=== PATIENT | female | born 1970 | race Caucasian/White ===

== ENCOUNTER 2022-02-08 05:14 | Emergency (ER) | payer SELFPAY ==
[~2022-02-08] VITALS: Ht 167.6 cm; Wt 108.9 kg
[2022-02-08 05:20] VITALS: BP 109/85
--- NOTE | 2022-02-08 05:29 | NUR ---
51 y/o bib daughter since yesterday . pt states she has asthma. she takes qvar but stated very little relief. pt states no chest pain. pt states slight cough. pt states she was just sleeping. pt denies smoking or drinking. pt is covid vaccinated. hx: asthmam, predisone hypothyroid allergies: nka
--- NOTE | 2022-02-08 06:10 | NUR ---
SEEN AND EXAMINED BY ELSA WITH ORDERS AND CARRIED OUT.
[2022-02-08] MEDS ORDERED: predniSONE 20 MG TAB PO ONE (06:15)
[2022-02-08] MEDS ORDERED: ALBUTEROL HFA MDI 90 MCG/ACTUATION 8 GM INH ONE (06:15)
--- NOTE | 2022-02-08 06:23 | NUR ---
norbert boone taken to lab
--- NOTE | 2022-02-08 06:54 | NUR ---
4 PUFFS VENTOLIN MDI GIVEN AT THIS TIME WITH 0 ADVERSE REACTIONS
--- NOTE | 2022-02-08 07:15 | NUR ---
REPORT RECIEVED FROM [facility].
[2022-02-08] MEDS ORDERED: PROM118S5 PO (07:26)
[2022-02-08] MEDS ORDERED: PRED20TA5 PO (07:26)
--- NOTE | 2022-02-08 07:54 | NUR ---
Note olesya in EDM - 02/08/22 at 0807 by AVA Patient discharged with v/s stable. Written and verbal after care instructions given and explained. Patient verbalized understanding. Ambulatory with steady gait. All questions addressed prior to discharge. Advised to follow up with PMD.
[2022-02-08 08:05] VITALS: BP 133/75
--- NOTE | 2022-02-08 08:05 | NUR ---
Patient discharged with v/s stable. Written and verbal after care instructions given and explained. Patient verbalized understanding. with . All questions addressed prior to discharge. Advised to follow up with PMD.
== END 2022-02-08 08:05 | disposition home or self-care (01) ==
LOC: MED 05:14
DX: J45.901 Unspecified asthma with (acute) exacerbation (principal); Z20.822 Contact with and (suspected) exposure to COVID-19; J06.9 Acute upper respiratory infection, unspecified; Z90.49 Acquired absence of other specified parts of digestive tract; Z79.899 Other long term (current) drug therapy
CPT/HCPCS: 71045; 87426; 99284; J7512; Q0092; J3535